=== PATIENT | male | born 2000 | race Caucasian/White ===

== ENCOUNTER 2021-08-02 13:51 | Emergency (ER) | payer OTHER, SELFPAY ==
[~2021-08-02] VITALS: Ht 162.6 cm; Wt 65.8 kg
[2021-08-02 14:10] VITALS: BP_SYST 144
--- NOTE | 2021-08-02 15:05 | NUR ---
POC reviewed, pt. already had PCR test sent here today, came in with flu like symptoms since yesterday, including fever, HOLLIS, cough, sore throat
--- NOTE | 2021-08-02 17:31 | NUR ---
CELESTE Ambrose in tent examining patient.
[2021-08-02 19:20] VITALS: BP_SYST 108
--- NOTE | 2021-08-02 19:20 | NUR ---
Patient given written and verbal discharge instructions and verbalizes understanding. ER Dr. Walters discussed with patient the results and treatment provided. Patient in stable condition. ID arm band removed. Patient educated on pain management and to follow up with PMD. Pain Scale 2. Opportunity for questions provided and answered.
== END 2021-08-02 19:20 | disposition home or self-care (01) ==
LOC: SED 13:51
DX: U07.1 COVID-19 (principal)
CPT/HCPCS: 87426; 99283; C9803; U0003; 36415